=== PATIENT | male | born 1980 | race African-American/Black ===

== ENCOUNTER 2022-01-11 02:48 | Emergency (ER) | payer OTHER ==
[~2022-01-11] VITALS: Ht 185.4 cm; Wt 88.0 kg
[2022-01-11] MEDS ORDERED: IBUPROFEN 600MG TABLET PO ONE (03:30)
[2022-01-11 05:38] VITALS: BP 122/74
== END 2022-01-11 05:40 | disposition home or self-care (01) ==
LOC: ER 02:48
DX: S60.222A Contusion of left hand, initial encounter (principal); S60.221A Contusion of right hand, initial encounter; M79.10 Myalgia, unspecified site; I10 Essential (primary) hypertension; Y08.89XA Assault by other specified means, initial encounter; Y93.9 Activity, unspecified; Z02.79 Encounter for issue of other medical certificate
CPT/HCPCS: 73130; 99283